=== PATIENT | female | born 1975 | race Caucasian/White ===

== ENCOUNTER 2019-08-07 10:15 | Outpatient (CLI) | payer OTHER, SELFPAY ==
--- NOTE | ~2019-08-07 | MR_ITS ---
EXAMINATION: MR cervical spine wo con EXAM DATE: 08/07/2019 12:22 INDICATION: Neck pain. Arm pain. TECHNIQUE: Multi-sequential, multiplanar MR images of the cervical spine were obtained without contra st. Axial T2, axial T2 MERGE sequence. Sagittal T1, T2, T2 fat saturation images also obtained. Th ere is no prior study for comparison. FINDINGS: There is mild disc disease from C4 through C7. The vertebral bodies are aligned in the AP dimension. The spinal cord signal intensity and intrinsic morphology is normal. Cervicomedullary junc tion is normal in appearance. There are no suspicious marrow signal abnormalities. Paraspinal soft ti ssue is unremarkable. Level by level evaluation: C2-C3: Disc does not extend beyond the endplate margin. Uncovertebral joint arthropathy: None. Facet joint arthropathy: Mild. Neural foraminal stenosis: No stenosis. Central canal stenosis: No stenosis. C3-C4: There is a minimal diffuse disc bulge. Uncovertebral joint arthropathy: Minimal left. Facet joint arthropathy: Mild right. Neural foraminal stenosis: No stenosis. Central canal stenosis: No stenosis. C4-C5: There is a minimal diffuse disc bulge. Uncovertebral joint arthropathy: Mild right. Facet joint arthropathy: Mild bilateral. Neural foraminal stenosis: Mild right. Central canal stenosis: No stenosis. C5-C6: There is a mild diffuse disc bulge. Uncovertebral joint arthropathy: Mild to moderate right, mild left. Facet joint arthropathy: Mild bilateral. Neural foraminal stenosis: Moderate right, mild to moderate left. Central canal stenosis: Mild. C6-C7: There is a minimal diffuse disc bulge. Uncovertebral joint arthropathy: Mild bilateral. Facet joint arthropathy: Mild bilateral. Neural foraminal stenosis: Mild left. Central canal stenosis: Minimal. C7-T1: Disc does not extend beyond the endplate margin. Uncovertebral joint arthropathy: None. Facet joint arthropathy: Mild. Neural foraminal stenosis: No stenosis. Central canal stenosis: No stenosis. IMPRESSION: 1. Mild to moderate midcervical arthropathy. Reviewed, dictated and finalized at location A.
--- NOTE | ~2019-08-07 | XR_ITS ---
XR knee LT 2V 08/07/2019 10:36 Indication: Left knee pain Procedure: 2 views left knee Comparison: No prior studies for comparison. Findings: No fracture, subluxation or dislocation. Mild osteoarthritis. No significant joint effusion . No radiopaque foreign bodies. Impression: 1: Mild osteoarthritis of the left knee. Reviewed, dictated and finalized at location A. Impression: 1: Mild osteoarthritis of the left knee.
--- NOTE | ~2019-08-07 | MR_ITS ---
EXAMINATION: MR lumbar spine wo con EXAM DATE: 08/07/2019 12:22 INDICATION: Low back pain. Bilateral leg pain. TECHNIQUE: Multi-sequential, multiplanar MR images of the lumbar spine were obtained without contrast . Sagittal T1, T2, T2 fat saturation images. Axial T2 weighted images. There is no prior study for comparison. FINDINGS: There is mild loss of the L5-S1 disc height, mild disc desiccation from L3-S1. The vertebra l body and disc heights are otherwise well maintained. The vertebral bodies are aligned in the AP dim ension. The conus medullaris terminates at the L1 level and has normal signal intensity and morpholog y. Incidental note made of several cystic regions in the right ovary, largest measuring 3.8 cm, next lar gest contiguous measuring 2.2 cm. No appreciable focal mural nodule of soft tissue within these, coul d be physiologic but recommend 6 week follow-up pelvic sonogram to exclude possibility of cystic ovar francois neoplasm (would most likely be benign histology). Level by level evaluation: T12-L1: Disc does not extend beyond the endplate margin. Facet arthropathy: Minimal. Neural foraminal stenosis: No stenosis. Central canal stenosis: No stenosis. L1-L2: Disc does not extend beyond the endplate margin. Facet arthropathy: Mild. Neural foraminal stenosis: No stenosis. Central canal stenosis: No stenosis. L2-L3: There is a minimal diffuse disc bulge. Facet arthropathy: Mild. Neural foraminal stenosis: No stenosis. Central canal stenosis: No stenosis. L3-L4: There is a mild diffuse disc bulge. Facet arthropathy: Mild. Neural foraminal stenosis: No stenosis. Central canal stenosis: No stenosis. L4-L5: There is a mild diffuse disc bulge. Facet arthropathy: Mild. Neural foraminal stenosis: Mild bilateral. Central canal stenosis: No stenosis. L5-S1: There is a mild diffuse disc bulge. Facet arthropathy: Mild. Neural foraminal stenosis: No stenosis. Central canal stenosis: No stenosis. IMPRESSION: 1. Incidental cystic left ovarian region for which six-week follow-up pelvic sonogram is recommended . 2. Mild lumbar spondylosis. Reviewed, dictated and finalized at location A. IMPRESSION: 1. Incidental cystic left ovarian region for which six-week follow-up pelvic s onogram is recommended. 2. Mild lumbar spondylosis.
--- NOTE | ~2019-08-07 | XR_ITS ---
XR knee RT 2V 08/07/2019 10:36 INDICATION: Right knee pain PROCEDURE: 2 views right knee COMPARISON: No prior studies for comparison. FINDINGS: Fracture, dislocation or subluxation is not identified. The soft tissues appear within norm al limits. No foreign bodies are identified. IMPRESSION: 1: NO ACUTE BONE OR JOINT ABNORMALITY IDENTIFIED. Reviewed, dictated and finalized at location A.
== END 2019-08-07 10:16 | disposition home or self-care (01) ==
LOC: ANHIMG 10:18
PROVIDERS: PCP Nurse Practitioner Family; Visit Provider Internal Medicine Rheumatology
DX: M47.812 Spondylosis without myelopathy or radiculopathy, cervical region (principal); M47.816 Spondylosis without myelopathy or radiculopathy, lumbar region; N83.202 Unspecified ovarian cyst, left side; M17.12 Unilateral primary osteoarthritis, left knee; M54.5 Low back pain; M25.50 Pain in unspecified joint; M54.2 Cervicalgia
CPT/HCPCS: 72141; 72148; 73560

== ENCOUNTER 2019-08-22 07:18 | Outpatient (CLI) | payer OTHER, SELFPAY ==
[2019-08-22 08:24] LABS: Hematocrit 38.8 % (37.0-47.0); Hemoglobin 13.5 g/dL (12.0-15.0); Mean Corpuscular HGB Conc 34.8 g/dl (32-36); Mean Corpuscular Hemoglobin 31.6 pg (26-34); Mean Corpuscular Volume 90.9 fl (80-100); Mean Platelet Volume 10.1 fl (7.4-10.4); Platelet Count Result 260 k/mm3 (150-375); Red Blood Count 4.27 M/mm3 (4.2-5.4); Red Cell Distribution Width 12.3 % (11.5-14.5)
[2019-08-22 08:27] LABS: Add Urine Microscopic? NO; Appearance Urine Clear (Clear); Bilirubin Urine Negative (Negative); Blood Urine Negative (Negative); Color Urine Yellow (Yellow); Glucose Urine UA Negative (Negative); Ketones Urine Negative (Negative); Leukocyte Esterase Ur Negative LEU/UL (NEGATIVE); Nitrate Urine Negative (Negative); Protein Urine Negative (Negative); Specific Grav Ur 1.027 (1.001-1.035); Urobilinogen Urine Negative mg/dL (<2.0)
[2019-08-22 08:41] LABS: Alanine Aminotransferase 22 U/L (4-35); Albumin Level 4.6 g/dL (3.5-5.1); Alkaline Phosphatase 53 U/L (38-126); Aspartate Amino Transferase 22 U/L (14-36); Bilirubin,Total 0.7 mg/dL (0.2-1.3); Blood Urea Nitrogen 14 mg/dL (7-17); Calcium 8.7 mg/dL (8.4-10.2); Carbon Dioxide 24 mmol/L (22-30); Chloride 108 mmol/L (98-107); Creatine Kinase 68 U/L (30-135); Estimated Glomerular Filt Rate > 60; Glucose 95 mg/dL (65-105); Magnesium 2.2 mg/dL (1.6-2.3); Potassium 3.9 mmol/L (3.4-5.0); Sodium 140 mmol/L (137-145); Uric Acid 4.3 mg/dL (2.5-7.5)
[2019-08-22 08:47] LABS: Complement C3 123 mg/dL (88-165); Rheumatoid Factor < 8.6 IU/ML (<12)
[2019-08-22 08:58] LABS: Erythrocyte Sedimentation Rate 18 mm/hr (0-20)
[2019-08-22 18:58] LABS: Hemoglobin A1C 5.2 % (<5.7)
[2019-08-22 20:08] LABS: Folic Acid > 20.0 ng/mL (2.76->20)
[2019-08-24 13:38] LABS: Anti Cardio Antibody IgM <12 MPL (<=12); Anti Cardiolipin Antibody IgA <11 APL (<=11); Anti Cardiolipin Antibody IgG <14 GPL (<=14)
[2019-08-25 04:00] LABS: Lupus dRVVT 1:1 Mix Interpreta Not Indicated; Lupus dRVVT Screen 31 sec (<=45); PTT-LA Screen 28 sec (<=40)
[2019-08-25 04:13] LABS: Albumin 4.1 g/dL (3.8-4.8); Alpha 1 Globulin 0.2 g/dL (0.2-0.3); Alpha 2 Globulin 0.7 g/dL (0.5-0.9); Beta 1 Globulin 0.4 g/dL (0.4-0.6); Gamma Globulin 0.9 g/dL (0.8-1.7); Protein, Total 6.6 g/dL (6.1-8.1)
[2019-08-26 09:44] LABS: RNP Antibodies <1.0; SS-A <1.0; SS-B <1.0; Scleroderma 70 Antibody <1.0
[2019-08-27 10:49] LABS: Anti Cyclic Citrullinated Pept <16 Units (<20)
[2019-08-28 21:36] LABS: Complement Total CH50 59 U/mL (31-60)
[2019-08-29 14:19] LABS: Creatinine, Random Urine 202 mg/dL (20-275); Total Protein/Creatinine Ratio 50 mg/g creat (21-161)
[2019-09-02 15:14] LABS: Reference Lab Test Name 14-3-3 eta Protein
== END 2019-08-22 07:19 | disposition home or self-care (01) ==
LOC: ANHLAB 07:21
PROVIDERS: PCP Nurse Practitioner Family; Visit Provider Internal Medicine Rheumatology
DX: M32.9 Systemic lupus erythematosus, unspecified (principal); R79.89 Other specified abnormal findings of blood chemistry; G62.9 Polyneuropathy, unspecified; R53.83 Other fatigue; M19.90 Unspecified osteoarthritis, unspecified site; M79.10 Myalgia, unspecified site; E55.9 Vitamin D deficiency, unspecified; E53.8 Deficiency of other specified B group vitamins
CPT/HCPCS: 36415; 80053; 81003; 82306; 82550; 82570; 82607; 82746; 83036; 83520; 83735; 84155; 84156; 84165; 84166; 84443; 84550; 85027; 85613; 85652; 85730; 86146; 86147; 86160; 86162; 86200; 86225; 86235; 86430